=== PATIENT | male | born 1950 | race African-American/Black ===

== ENCOUNTER → 2017-05-19 | Outpatient (CLI) | payer MEDICARE ==
[~2017-05-19] MED LIST: ASPI81TA50 PO; BUPIVACAINE MPF 0.25% 10 ML VIAL. ONE; DILT180C29 PO; LIDOCAINE 1% PF 30 ML VIAL. ONE; methylPREDNISolone ACETATE 40 MG/ML VIAL. ONE
== END | disposition home or self-care (01) ==
LOC: SURG 13:07
PROVIDERS: ATTEND Anesthesiology Pain Medicine
DX: M47.9 Spondylosis, unspecified (principal); I10 Essential (primary) hypertension
CPT/HCPCS: 64493; 64494; J1030; J2001; J3490

== ENCOUNTER → 2017-08-04 | Outpatient (CLI) | payer MEDICARE ==
[~2017-08-04] MED LIST changes: +BUPIVACAINE MPF 0.25% 10 ML VIAL. IJ ONE; +IV RINGERS SOLUTION,LACTATED 1,000 ML IV ONE; +IV RINGERS SOLUTION,LACTATED 1,000 ML IV SCH; +LIDOCAINE (700MG/PATCH) PATCH. ONE; +LIDOCAINE 1% PF 30 ML VIAL. INJ ONE; +MIDAZOLAM HCL PF 2 MG/2 ML VIAL. ONE; +ONDANSETRON PF 4 MG/2 ML VIAL. ONE; +methylPREDNISolone ACETATE 40 MG/ML VIAL. CAUD BLOCK ONE
[2017-08-04 10:05] VITALS: BP 139/65
== END | disposition home or self-care (01) ==
LOC: SURG 07:31
PROVIDERS: ATTEND Anesthesiology Pain Medicine
DX: M47.816 Spondylosis without myelopathy or radiculopathy, lumbar region (principal); I10 Essential (primary) hypertension; Z98.890 Other specified postprocedural states; Z79.899 Other long term (current) drug therapy; Z72.89 Other problems related to lifestyle
CPT/HCPCS: 64635; 64636; 99152; 99153; J1030; J2001; J2250; J2405; J3010; J3490; J7120

== ENCOUNTER → 2018-03-01 | Outpatient (CLI) | payer MEDICARE ==
[2017-08-04 10:05] VITALS: BP 139/65
[~2018-03-01] MED LIST changes: -BUPIVACAINE MPF 0.25% 10 ML VIAL. IJ ONE; -BUPIVACAINE MPF 0.25% 10 ML VIAL. ONE; -IV RINGERS SOLUTION,LACTATED 1,000 ML IV ONE; -IV RINGERS SOLUTION,LACTATED 1,000 ML IV SCH; -LIDOCAINE (700MG/PATCH) PATCH. ONE; -LIDOCAINE 1% PF 30 ML VIAL. INJ ONE; -LIDOCAINE 1% PF 30 ML VIAL. ONE; -MIDAZOLAM HCL PF 2 MG/2 ML VIAL. ONE; -ONDANSETRON PF 4 MG/2 ML VIAL. ONE; -methylPREDNISolone ACETATE 40 MG/ML VIAL. CAUD BLOCK ONE; -methylPREDNISolone ACETATE 40 MG/ML VIAL. ONE
--- NOTE | 2018-03-01 16:57 | RAD ---
Bilateral lower extremity arterial Doppler ultrasound HISTORY: HX LEG PAIN
SONO IMPRESSION BIPHASIC FLOW SEEN THROUGHOUT TECHNIQUE: Color Doppler, grayscale and duplex analysis performed of the right and left lower extremity arterial structures, from the common femoral artery through the runoff vessels. COMPARISON: None are available All velocity measurements are in centimeters per second. Right leg: Biphasic waveforms from the right common femoral artery through the ankle. Velocities range from 36-113 without abrupt velocity shift. No evidence of occlusive disease. No evidence of high-grade stenosis. Left leg: Biphasic waveforms from the left common femoral artery through the ankle. Velocities range from 35-96, without abrupt shift. No evidence of occlusion or high-grade stenosis. IMPRESSION: Bilateral biphasic waveforms throughout. No evidence of occlusion or high-grade stenosis. Electronically signed by: Quang Tovar MD (03/01/2018 4:54 PM) [id number]
== END | disposition home or self-care (01) ==
LOC: US 13:47
PROVIDERS: ATTEND Podiatrist Foot & Ankle Surgery
DX: I73.89 Other specified peripheral vascular diseases (principal); I87.8 Other specified disorders of veins
CPT/HCPCS: 93925

== ENCOUNTER → 2020-03-16 | Outpatient (CLI) | payer MEDICARE, OTHER ==
[2017-08-04 10:05] VITALS: BP 139/65
--- NOTE | 2020-03-16 17:19 | RAD ---
Bilateral arterial duplex study 03/16/2020 CLINICAL HISTORY: Peripheral vascular disease. Hypertension. Smoking history. TECHNIQUE: Using a combination of real-time ultrasound imaging and color-flow and pulse Doppler imaging techniques, duplex evaluation of the major arterial structures of both lower extremities was performed. Multiple images were obtained. FINDINGS: Comparison study is dated 03/01/2018. Mild to moderate atheromatous/atherosclerotic plaque formation is seen scattered throughout the major arterial structures of both lower extremities. Triphasic/biphasic arterial waveforms are seen throughout. The peak systolic velocities taper normally. No hemodynamically significant stenosis or area of occlusion is seen. IMPRESSION: Mild to moderate atheromatous/atherosclerotic plaque formation is seen scattered throughout the major arterial structures of both lower extremities. No hemodynamically significant stenosis or area of occlusion is seen. Electronically signed by: Chris Gibbs MD (03/16/2020 5:17 PM) [id number]
== END ==
LOC: US 13:22
PROVIDERS: ATTEND Family Medicine
DX: I73.9 Peripheral vascular disease, unspecified (principal); I10 Essential (primary) hypertension; Z87.891 Personal history of nicotine dependence
CPT/HCPCS: 93925

== ENCOUNTER → 2020-08-06 | Outpatient (CLI) | payer MEDICARE, OTHER ==
[2017-08-04 10:05] VITALS: BP 139/65
--- NOTE | 2020-08-06 15:37 | RAD ---
CT abdomen and pelvis without contrast: Reason for examination: Diverticulosis with generalized abdominal pain. Helical images were obtained through the abdomen pelvis with no intravenous or oral contrast administ ered. Reconstruction was performed in sagittal and coronal planes. Exposure: One or more of the following individualized dose reduction techniques were utilized for thi s examination: 1. Automated exposure control 2. Adjustment of the mA and/or kV according to patient size 3. Use of iterative reconstruction technique. There is a noncalcified pulmonary nodule measuring 8 mm in size in the left lingular peripherally. Th e heart size is normal with no pericardial effusion. No focal abnormalities are seen at the liver, spleen, adrenal glands, pancreas or gallbladder. The ab dominal aorta shows some mild arteriosclerotic vascular calcification but no significant aneurysmal d ilatation. No abnormality seen at the inferior vena cava. There is no evidence of significant diverti culosis, diverticulitis or colitis. The appendix is not distended but there is calcific density withi n the appendix consistent with multiple calcific densities seen throughout the colon and possibly ref lecting ingested material. No appendiceal wall thickening, dilatation or periappendiceal inflammatory changes are seen. The small intestinal tract shows no abnormal dilatation, wall thickening or obstru ction. No abnormality seen at the stomach or duodenum. The right kidney is noted to be rotated. There are hypodense lesions in the left kidney consistent with cysts. No renal calculi, hydronephrosis or obstructive uropathy is evident. No abnormality seen at the bladder. Prostate gland contains calcification. Seminal vesicles are symme tric. No free fluid or free air seen in the abdomen or pelvis. There appear to be old healing rib fra ctures at the right ninth and 10th ribs anterolaterally. There are some hypertrophic changes in the s pine. No acute bony abnormalities are evident. IMPRESSION: 8 mm noncalcified pulmonary nodule in the left lingula. Recommend follow-up according to Fleischner S ociety guidelines. Small calcific densities in the appendix and throughout the colon possibly reflecting an ingested med ication but no inflammatory changes seen at or around the appendix to suggest appendicitis. No significant diverticulosis or diverticulitis. Calcifications in the prostate gland. No other acute abnormalities evident in the abdomen or pelvis. Electronically signed by: Jackie Sims MD (08/06/2020 3:34 PM) REJI
== END ==
LOC: CT 14:41
PROVIDERS: ATTEND Physician Assistant
DX: K57.30 Diverticulosis of large intestine without perforation or abscess without bleeding (principal); R91.1 Solitary pulmonary nodule
CPT/HCPCS: 74176

== ENCOUNTER → 2020-08-14 | Outpatient (CLI) | payer MEDICARE, OTHER ==
[2017-08-04 10:05] VITALS: BP 139/65
--- NOTE | 2020-08-14 18:17 | RAD ---
EXAM: CT CHEST WITHOUT CONTRAST HISTORY: 8 mm pulmonary nodule in left lingula COMPARISON: None TECHNIQUE: Helical CT of the chest performed without contrast. Coronal and sagittal reformats were o btained. One or more of the following individualized dose reduction techniques were utilized for this examinat ion: 1. Automated exposure control 2. Adjustment of the mA and/or kV according to patient size 3. Use of iterative reconstruction technique. FINDINGS: Thyroid gland and thoracic inlet: Normal. Heart and great vessels: The heart is normal in size. No pericardial effusion. The thoracic aorta is normal in caliber. Mediastinum and shawna: No mediastinal or hilar lymphadenopathy Lungs and pleura: There is a round, noncalcified 8 mm pulmonary nodule in the lingula (image 2:30, se cecelia 2). Adjacent 3 mm pulmonary nodule in the lingula (image 244, series 2). The lungs are otherwise clear. Airways are clear. There is mild airway wall thickening. No pleural effusion. Chest wall and axillae: No axillary lymphadenopathy. Upper abdomen: There is a left renal cyst. Bones: There appear to be subtle sclerotic and lucent lesions in the left lateral third, fourth, fift h ribs and right posterior seventh ribs. Questionable subtle heterogeneous appearance of some of the other ribs. IMPRESSION: 1. 8 mm round pulmonary nodule in the lingula and adjacent 2 mm pulmonary nodule in the lingula. Leroy mmend follow-up CT in 3-6 months per Fleischner Society guidelines. 2. Questionable subtle lucent and sclerotic lesions in the ribs bilaterally. Correlate with clinical history for malignancy and outside prior exams if available. Consider nuclear medicine bone scan, and attention on follow-up CT of the chest. Electronically signed by: Monserrat Enrique MD (08/14/2020 6:15 PM) [id number]
== END ==
LOC: CT 11:49
PROVIDERS: ATTEND Physician Assistant
DX: R91.8 Other nonspecific abnormal finding of lung field (principal); N28.1 Cyst of kidney, acquired
CPT/HCPCS: 71250

== ENCOUNTER → 2020-09-28 | Outpatient (CLI) | payer MEDICARE, OTHER ==
[2017-08-04 10:05] VITALS: BP 139/65
--- NOTE | 2020-09-28 13:17 | RAD ---
EXAM: BONE SCINTIGRAPHY. HISTORY: Rib lesions. TECHNIQUE: Following the intravenous injection of 25.1 mCi of Tc-99m labeled methylene diphosphonate (MDP), delayed images of the whole body were performed in anterior and posterior projections. COMPARISON: 08/14/2020. FINDINGS: There is one focus of intense uptake along the left third sternocostal junction. There is n o suspicious lesion at this site on CT. There are degenerative changes at other sternocostal junction s and scattered costochondral calcifications. There are no foci of intense uptake suggestive of osseous metastatic disease. Foci along the left man dible and maxilla are likely odontogenic. Additional degenerative uptake is noted at the acromioclavi cular and sternal clavicular joints. Degenerative uptake also involves the lower cervical spine, righ t glenohumeral joint, and right hindfoot. Uptake along the left inguinal region is likely urine conta mination. IMPRESSION: 1. No clearly suspicious lesions suggestive of metastatic disease. Degenerative uptake as above. Electronically signed by: Charissa Mason MD (09/28/2020 1:14 PM) [facility]
== END ==
LOC: NM 08:41
PROVIDERS: ATTEND Family Medicine
DX: M89.9 Disorder of bone, unspecified (principal); R91.8 Other nonspecific abnormal finding of lung field
CPT/HCPCS: 78306; A9503

== ENCOUNTER → 2021-03-29 | Outpatient (CLI) | payer MEDICARE ==
[2017-08-04 10:05] VITALS: BP 139/65
--- NOTE | 2021-03-29 10:49 | RAD ---
EXAM: CT OF THE CHEST WITHOUT CONTRAST. HISTORY: Pulmonary nodule follow-up. TECHNIQUE: Computed tomography of the chest was performed without intravenous contrast. One or more o f the following individualized dose reduction techniques were utilized for this examination: 1. Automated exposure control. 2. Adjustment of the mA and/or kV according to patient size. 3. Use of iterative reconstruction technique. COMPARISON: 08/14/2020, 03/26/2019. FINDINGS: Images of the upper abdomen reveal a 2.2 cm benign cyst in the left kidney. Bone windows re veal no suspicious lesions. Scattered small lesions bilaterally in the ribs are stable chronically. T here is a 2.3 x 1.0 cm intramuscular lipoma within the right subscapularis muscle. There are no pathologically enlarged mediastinal or axillary lymph nodes. There is no pleural or rodger cardial effusion. The heart is not enlarged. A 7 mm uncalcified nodule in the lingula on image 79 is stable since 03/26/2019 and likely benign. An other 2 mm nodule in the lingula on image 83 is also stable and likely benign. IMPRESSION: 1. A 7 mm nodule in the lingula has been stable for 2 years and is likely benign. 2. Scattered small lytic and sclerotic foci within the ribs have also been stable chronically and liliana ign lesion such as fibrous dysplasia or hemangiomas are most likely in the absence of known malignanc y. Electronically signed by: Charissa Mason MD (03/29/2021 10:46 AM) [id number]
== END ==
LOC: CT 09:27
PROVIDERS: ATTEND Family Medicine
DX: R91.1 Solitary pulmonary nodule (principal); N28.1 Cyst of kidney, acquired; D17.9 Benign lipomatous neoplasm, unspecified
CPT/HCPCS: 71250